=== PATIENT | male | born 1940 | race Caucasian/White ===

== ENCOUNTER 2018-08-24 16:22 | Outpatient (REF) | payer MEDICARE, SELFPAY ==
[2018-08-24 19:20] LABS: HCT 39.7 % (40.0-50.0); HGB 13.6 g/dL (13.5-17.5); Mean Corp. HGB Concentration 34.3 g/dL (32.0-36.0); Mean Corpuscular Hemoglobin 31.2 pg (27.0-33.0); Mean Corpuscular Volume 91.1 fL (80-95); Mean Platelet Volume 11.2 fL (8.0-11.0); Platelet Count 215 x1000/uL (130-400); RBC 4.36 m/cumm (4.50-6.00); RBC Distribution Width 12.4 % (11.8-14.1)
[2018-08-24 19:48] LABS: ALT 33 U/L (12-78); AST 28 U/L (15-37); Albumin 3.7 g/dL (3.4-5.0); Alkaline Phosphatase 50 U/L (46-116); Anion Gap 8.6 mmol/L (3-11); BUN 26 mg/dL (7-18); Bilirubin, Total 0.4 mg/dL (0.2-1.0); CO2 28.4 mmol/L (21.0-32.0); CREATININE 0.88 mg/dL (0.70-1.30); Calcium 9.2 mg/dL (8.5-10.1); Chloride 102 mmol/L (98-107); Glucose 92 mg/dL (70-100); Potassium 4.1 mmol/L (3.5-5.1); Sodium 139 mmol/L (136-145); Total Protein 7.6 g/dL (6.4-8.2)
[2018-08-26 09:39] LABS: PSA, Screening 2.4 ng/ml (0-6.5)
== END 2018-08-24 16:42 ==
LOC: NCHCN 16:22
PROVIDERS: PCP Internal Medicine; Visit Provider Physician Assistant Medical
DX: D64.9 Anemia, unspecified (principal); Z12.5 Encounter for screening for malignant neoplasm of prostate; R97.20 Elevated prostate specific antigen [PSA]
CPT/HCPCS: 80053; 84153; 85027

== ENCOUNTER 2018-12-14 09:12 | Outpatient (REF) | payer MEDICARE, SELFPAY ==
[2018-12-14 19:35] LABS: Uric Acid 4.5 mg/dL (3.5-7.2)
== END 2018-12-14 09:32 ==
LOC: NCHCN 09:12
PROVIDERS: PCP Internal Medicine; Visit Provider Nurse Practitioner Family
DX: L08.9 Local infection of the skin and subcutaneous tissue, unspecified (principal)
CPT/HCPCS: 84550

== ENCOUNTER 2019-12-31 19:19 | Outpatient (REF) | payer MEDICARE, SELFPAY ==
[2019-12-31 20:10] LABS: Abs Immature Grans 0.01 k/cumm (0.0-0.09); Absolute Basophil Count 0.01 k/cumm (0.0-0.2); Absolute Eosinophil Count 0.01 k/cumm (0.0-0.7); Absolute Lymphocyte Count 0.83 k/cumm (1.2-3.4); Absolute Monocyte Count 0.61 k/cumm (0.11-0.7); Absolute Neutrophil Count 2.27 k/cumm (1.2-6.7); Basophils % 0.3; Eosinophils % 0.3; HCT 36.8 % (40.0-50.0); HGB 12.2 g/dL (13.5-17.5); Immature Grans % 0.3 %; Lymphocytes % 22.2; Mean Corp. HGB Concentration 33.2 g/dL (32.0-36.0); Mean Corpuscular Hemoglobin 30.4 pg (27.0-33.0); Mean Corpuscular Volume 91.8 fL (80-95); Mean Platelet Volume 10.4 fL (8.0-11.0); Monocytes % 16.3; Neutrophils % 60.6; Platelet Count 263 x1000/uL (130-400); RBC 4.01 m/cumm (4.50-6.00); RBC Distribution Width 12.1 % (11.8-14.1); White Blood Cell Count 3.74 k/cumm (4.4-10.8)
[2019-12-31 20:40] LABS: ALT 250 U/L (16-63); AST 160 U/L (15-37); Albumin 3.1 g/dL (3.4-5.0); Alkaline Phosphatase 109 U/L (46-116); BUN 21 mg/dL (7-18); CREATININE 1.09 mg/dL (0.70-1.30); Calcium 8.8 mg/dL (8.5-10.1); Chloride 100 mmol/L (98-107); Glucose 95 mg/dL (74-106); LDL CHOLESTEROL 80 mg/dL (<100); Sodium 136 mmol/L (136-145); TSH (W/Ref FT4) 1.28 uIU/mL (0.36-3.74); Total Protein 7.1 g/dL (6.4-8.2)
[2019-12-31 21:02] LABS: Bilirubin, Total 0.3 mg/dL (0.2-1.0)
[2020-01-03 09:45] LABS: PSA, Screening 5.1 ng/mL (0.0-6.5)
== END 2019-12-31 19:39 ==
LOC: NCHCN 19:19
PROVIDERS: PCP Internal Medicine; Visit Provider Physician Assistant
DX: R47.02 Dysphasia (principal); E78.5 Hyperlipidemia, unspecified; I20.9 Angina pectoris, unspecified; R97.20 Elevated prostate specific antigen [PSA]
CPT/HCPCS: 80053; 83721; 84153; 84443; 85025

== ENCOUNTER 2020-01-06 00:38 | Outpatient (CLI) | payer MEDICARE, SELFPAY ==
[2020-01-06] MEDS: Barium Sulfate 60% W/V 355 ML BTL PO (09:36)
[2020-01-06] MEDS: Simethicone/Sod Bicarb/Cit Ac, 4 gram PACKET 1 PACKET PO (09:36)
--- NOTE | 2020-01-06 09:37 | DI.RAD_ITS ---
EXAM: RF BARIUM SWALLOW CLINICAL HISTORY: DYSPHAGIA, R13.10 TECHNIQUE: 2D and realtime digital imaging was performed. CONTRAST MATERIAL: Oral barium contrast was administered. COMPARISON: No exams were available for comparison FINDINGS: CHEST X-RAY: The heart and pulmonary vasculature are within normal limits. The lungs are clear. No pl eural effusion or pneumothorax is present. The bones are within normal limits fo the patient's age. ESOPHAGRAM: The esophagus is patent with no evidence for erosions, fold thickening, strictures, or ma sses. With regards to the motility, there is a normal primary stripping wave. Tertiary contractions w ere noted. There is a moderate size hiatal hernia. No gastroesophageal reflux was identified during the examination. There was penetration without indira aspiration during the examination. IMPRESSION: Small hiatal hernia without gastroesophageal reflux.
== END 2020-01-06 00:58 ==
PROVIDERS: PCP Internal Medicine; Visit Provider Physician Assistant
DX: R13.10 Dysphagia, unspecified (principal); K44.9 Diaphragmatic hernia without obstruction or gangrene
CPT/HCPCS: 74221; J3490

== ENCOUNTER 2020-01-07 21:30 | Outpatient (REF) | payer MEDICARE, SELFPAY ==
[2020-01-07 18:50] LABS: Bilirubin Negative (Negative); Blood Negative (Negative); Clarity Clear (Clear); Glucose Negative (Negative); Ketones Negative (Negative); Leukocyte Esterase Trace (Negative); Nitrite Negative (Negative); Specific Gravity 1.025 (1.005-1.025); Urobilinogen 0.2 EU/dL (Up TO 0.2); pH 5.5 (5-8)
[2020-01-07 19:01] LABS: Bacteria Rare HPF (Negative); Epithelial Cells Few HPF (Negative); RBC 0-2 HPF (0-2)
[2020-01-07 19:02] LABS: Casts Negative LPF (Negative); Crystals Negative HPF (Negative); Mucus Negative (Negative)
[2020-01-07 19:03] LABS: C & S Indicated? No
[2020-01-07 19:19] LABS: Iron 30 ug/dL (65-175); Total Iron Binding Capacity 232 ug/dL (250-450); Transferrin Sat 13 % (20-55)
[2020-01-07 19:47] LABS: Ferritin 416 ng/mL (26-388)
[2020-01-10 09:53] LABS: HBs Antibody, Quant <3.1 mIU/mL (See Note); Hepatitis B Surface Ab Negative (See Note)
[2020-01-10 10:03] LABS: Hepatitis B Surface Ag Negative (Negative)
[2020-01-10 10:40] LABS: Hepatitis C Ab w Rflx HCV PCR Negative (Negative)
[2020-01-10 11:06] LABS: Hep A Total Ab w Rflx IgM Negative (Negative)
== END 2020-01-07 21:50 ==
LOC: NCHCN 21:30
PROVIDERS: PCP Internal Medicine; Visit Provider Physician Assistant
DX: R74.8 Abnormal levels of other serum enzymes (principal)
CPT/HCPCS: 86706; 86709; 86803; 87340; 81003; 81015; 82728; 83540; 83550

== ENCOUNTER 2020-01-21 03:16 | Outpatient (CLI) | payer MEDICARE, SELFPAY ==
[2020-01-21] MEDS: Omnipaque 350 MG/ML 50 ML BTL IJ (08:12)
--- NOTE | 2020-01-21 09:35 | DI.CT_ITS ---
EXAM: CT ABDOMEN PELVIS W CLINICAL HISTORY: ELEVATED LIVER ENZYMES,ANEMIA,HEMATURIA,PROSTATE NODULE,ELEVATED PSA TECHNIQUE: COMPARISON: No exams were available for comparison FINDINGS: CT examination of the abdomen and pelvis was performed bolus infusion of 100 cc of Omnipaque 350. Im ages obtained through the lung bases are unremarkable. Note is made of coronary artery calcification s. The liver and spleen appear normal except for mild hepatic steatosis. Gallbladder and bile ducts are CT normal. Pancreas appears normal. The adrenals are unremarkable in appearance bilaterally. Ther e is no evidence of a renal mass, hydronephrosis, or nephrolithiasis. Abdominal aorta is of normal diameter and major visceral branches appear intact. Tiny fat containing bilateral inguinal hernias are noted. No significant abdominal or pelvic adenopathy seen. The prostate is enlarged. There is masslike protuberances into the base of the urinary bladder which may represent lobulated enlarged prostate, bladder mass not excluded. Moderate bladder wall thicken ing is noted consistent with chronic bladder outlet obstruction. Appendix is not specifically visualized but there is no evidence of appendicitis or diverticulitis. There is no evidence of bowel obstruction. IMPRESSION: Prostatic enlargement, question bladder floor mass versus protruding prostatic tissue. Presumed community health advisor nalini bladder outlet obstruction with mild urinary bladder wall thickening. No abnormality of the upper urinary tracts.
[2020-01-21] MEDS: Omnipaque 350 MG/ML 100 ML BTL IJ (09:44)
== END 2020-01-21 03:36 ==
PROVIDERS: PCP Internal Medicine; Visit Provider Physician Assistant
DX: N40.0 Benign prostatic hyperplasia without lower urinary tract symptoms (principal); R97.20 Elevated prostate specific antigen [PSA]; R94.5 Abnormal results of liver function studies
CPT/HCPCS: 74177; J3490; Q9967

== ENCOUNTER 2020-02-16 08:17 | Outpatient (REF) | payer MEDICARE, SELFPAY ==
[2020-02-17 02:21] LABS: ALT 30 U/L (16-63); AST 26 U/L (15-37); Albumin 3.4 g/dL (3.4-5.0); Alkaline Phosphatase 47 U/L (46-116); Bilirubin, Direct 0.07 mg/dL (0.00-0.20); Bilirubin, Total 0.4 mg/dL (0.2-1.0); Total Protein 7.1 g/dL (6.4-8.2)
== END 2020-02-16 08:37 ==
LOC: NCHCN 08:17
PROVIDERS: PCP Internal Medicine; Visit Provider Physician Assistant
DX: R74.8 Abnormal levels of other serum enzymes (principal)
CPT/HCPCS: 80076

== ENCOUNTER 2020-12-27 11:24 | Outpatient (REF) | payer MEDICARE, SELFPAY ==
[2020-12-27 19:46] LABS: Abs Immature Grans 0.01 10^3/uL (0.0-0.06); Absolute Basophil Count 0.04 10^3/uL (0.0-0.2); Absolute Eosinophil Count 0.24 10^3/uL (0.0-0.7); Absolute Lymphocyte Count 1.44 10^3/uL (1.2-3.4); Absolute Monocyte Count 0.63 10^3/uL (0.1-0.8); Absolute Neutrophil Count 3.15 10^3/uL (1.2-6.7); Basophils % 0.7; Eosinophils % 4.4; HGB 13.8 g/dL (13.5-17.5); Immature Grans % 0.2; Lymphocytes % 26.1; MCH 30.7 pg (27.0-33.0); MCHC 33.7 % (32.0-36.0); MCV 91.3 fL (80-95); MPV 10.7 fL (8.0-11.0); Monocytes % 11.4; Neutrophils % 57.2; Nucleated RBC 0 %; Platelet Count 212 10^3/uL (130-400); RBC 4.49 10^6/uL (4.36-5.78); RDW 11.7 % (11.8-14.1); RDW-SD 39.5 fL; WBC 5.51 10^3/uL (4.4-10.8)
[2020-12-27 20:09] LABS: ALT 33 U/L (16-63); AST 28 U/L (15-37); Albumin 3.6 g/dL (3.4-5.0); Alkaline Phosphatase 45 U/L (46-116); Anion Gap 8.8 mmol/L (3-11); BUN 24 mg/dL (7-18); Bilirubin, Total 0.6 mg/dL (0.2-1.0); CO2 26.2 mmol/L (21.0-32.0); CREATININE 0.9 mg/dL (0.70-1.30); Chloride 106 mmol/L (98-107); Glucose 106 mg/dL (74-106); Potassium 4.1 mmol/L (3.5-5.1); Sodium 141 mmol/L (136-145); Total Protein 7.4 g/dL (6.4-8.2)
[2020-12-27 20:57] LABS: Calculated LDL 124 mg/dL (<100); Cholesterol 198 mg/dL (<200); HDL Cholesterol 47 mg/dL (40-60); Triglyceride 135 mg/dL (<150)
== END 2020-12-27 11:25 | disposition home or self-care (01) ==
LOC: NCHCN 11:24
PROVIDERS: PCP Internal Medicine; Visit Provider Physician Assistant
DX: E78.5 Hyperlipidemia, unspecified (principal); I20.8 Other forms of angina pectoris; D64.9 Anemia, unspecified
CPT/HCPCS: 80053; 80061; 85025

== ENCOUNTER 2021-10-24 18:08 | Outpatient (REF) | payer MEDICARE, SELFPAY ==
[2021-10-24 20:51] LABS: HCT 38.9 % (40.0-50.0); HGB 12.6 g/dL (13.5-17.5); MCH 29.2 pg (27.0-33.0); MCHC 32.4 % (32.0-36.0); MCV 90 fL (80-95); MPV 10.5 fL (8.0-11.0); Platelet Count 344 10^3/uL (130-400); RBC 4.32 10^6/uL (4.36-5.78); RDW 12.7 % (11.8-14.1); RDW-SD 41.9 fL; WBC 9.79 10^3/uL (4.4-10.8)
[2021-10-24 20:52] LABS: ESR 63 mm/hr (0-20)
[2021-10-25 18:00] LABS: CRP, High Sensitivity 13.83 mg/L (See Note)
[2021-10-25 18:46] LABS: PSA, Diagnostic 2.2 ng/mL (<=6.5)
== END 2021-10-24 18:09 | disposition home or self-care (01) ==
LOC: NCHCN 18:08
PROVIDERS: PCP Internal Medicine; Visit Provider Physician Assistant
DX: D64.9 Anemia, unspecified (principal); R97.20 Elevated prostate specific antigen [PSA]
CPT/HCPCS: 85027; 85652; 86141; 84153

== ENCOUNTER 2022-01-10 13:04 | Outpatient (REF) | payer MEDICARE, SELFPAY ==
[2022-01-10 18:52] LABS: ESR 65 mm/hr (0-20); HCT 38.4 % (40.0-50.0); HGB 12.9 g/dL (13.5-17.5); MCH 29.8 pg (27.0-33.0); MCHC 33.6 % (32.0-36.0); MCV 89 fL (80-95); MPV 10.7 fL (8.0-11.0); Platelet Count 275 10^3/uL (130-400); RBC 4.33 10^6/uL (4.36-5.78); RDW 12.7 % (11.8-14.1); RDW-SD 41.6 fL; WBC 9.02 10^3/uL (4.4-10.8)
[2022-01-10 19:00] LABS: ALT 26 U/L (16-63); AST 23 U/L (15-37); Albumin 3.3 g/dL (3.4-5.0); Alkaline Phosphatase 54 U/L (46-116); BUN 28 mg/dL (7-18); Bilirubin, Total 0.5 mg/dL (0.2-1.0); C-Reactive Protein 1.67 mg/dL (0.0-0.3); CREATININE 0.9 mg/dL (0.70-1.30); Calcium 8.9 mg/dL (8.5-10.1); Chloride 103 mmol/L (98-107); Glucose 96 mg/dL (74-106); Sodium 137 mmol/L (136-145); Total Protein 7.2 g/dL (6.4-8.2)
== END 2022-01-10 13:05 | disposition home or self-care (01) ==
LOC: NCHCN 13:04
PROVIDERS: PCP Internal Medicine; Visit Provider Physician Assistant
DX: R70.0 Elevated erythrocyte sedimentation rate (principal); R79.82 Elevated C-reactive protein (CRP); M79.604 Pain in right leg; M79.605 Pain in left leg; M79.621 Pain in right upper arm; H53.8 Other visual disturbances; M25.50 Pain in unspecified joint
CPT/HCPCS: 80053; 85027; 85652; 86140

== ENCOUNTER 2022-01-25 10:15 | Outpatient (REF) | payer MEDICARE, SELFPAY ==
[2022-01-25 19:24] LABS: ESR 27 mm/hr (0-20)
[2022-01-25 19:32] LABS: C-Reactive Protein < 0.05 mg/dL (0.0-0.3)
== END 2022-01-25 10:16 | disposition home or self-care (01) ==
LOC: NCHCN 10:15
PROVIDERS: PCP Internal Medicine; Visit Provider Nurse Practitioner Family
DX: M35.3 Polymyalgia rheumatica (principal)
CPT/HCPCS: 85652; 86140

== ENCOUNTER 2023-01-30 19:12 | Outpatient (REF) | payer MEDICARE, SELFPAY ==
[2023-01-30 19:33] LABS: HCT 38.6 % (40.0-50.0); HGB 13.2 g/dL (13.5-17.5); MCH 30.6 pg (27.0-33.0); MCHC 34.2 % (32.0-36.0); MCV 90 fL (80-95); MPV 10.7 fL (8.0-11.0); Platelet Count 252 10^3/uL (130-400); RBC 4.31 10^6/uL (4.36-5.78); WBC 7.18 10^3/uL (4.4-10.8)
[2023-01-30 19:58] LABS: ALT 27 U/L (16-63); AST 29 U/L (15-37); Albumin 3.6 g/dL (3.4-5.0); Alkaline Phosphatase 57 U/L (46-116); Anion Gap 8.6 mmol/L (3-11); BUN 27 mg/dL (7-18); Bilirubin, Total 0.4 mg/dL (0.2-1.0); CO2 27.4 mmol/L (21.0-32.0); CREATININE 0.9 mg/dL (0.70-1.30); Calcium 9.4 mg/dL (8.5-10.1); Chloride 106 mmol/L (98-107); Estimated GFR 86.34 (mL/min/1.73m2); Glucose 104 mg/dL (74-106); Potassium 4.2 mmol/L (3.5-5.1); Sodium 142 mmol/L (136-145); Total Protein 7.7 g/dL (6.4-8.2)
[2023-01-31 19:15] LABS: PSA, Screening 1.7 ng/mL (<=6.5)
== END 2023-01-30 19:13 | disposition home or self-care (01) ==
LOC: NCHCN 19:12
PROVIDERS: PCP Internal Medicine; Visit Provider Physician Assistant
DX: E78.5 Hyperlipidemia, unspecified (principal); R97.20 Elevated prostate specific antigen [PSA]; Z12.5 Encounter for screening for malignant neoplasm of prostate; D64.9 Anemia, unspecified
CPT/HCPCS: 80053; 84153; 85027

== ENCOUNTER 2024-02-10 17:08 | Outpatient (REF) | payer OTHER, SELFPAY ==
[2024-02-10 18:53] LABS: Abs Immature Grans 0.01 10^3/uL (0.0-0.06); Absolute Basophil Count 0.04 10^3/uL (0.0-0.2); Absolute Eosinophil Count 0.23 10^3/uL (0.0-0.7); Absolute Lymphocyte Count 1.41 10^3/uL (1.2-3.4); Absolute Monocyte Count 0.63 10^3/uL (0.1-0.8); Absolute Neutrophil Count 3.57 10^3/uL (1.2-6.7); Basophils % 0.7 %; Eosinophils % 3.9 %; HCT 40.7 % (40.0-50.0); HGB 13.7 g/dL (13.5-17.5); Immature Grans % 0.2 %; Lymphocytes % 23.9 %; MCH 30.9 pg (27.0-33.0); MCHC 33.7 % (32.0-36.0); MCV 92 fL (80-95); MPV 10.8 fL (8.0-11.0); Monocytes % 10.7 %; Neutrophils % 60.6 %; Platelet Count 229 10^3/uL (130-400); RBC 4.44 10^6/uL (4.36-5.78); RDW 12.1 % (11.8-14.1); WBC 5.89 10^3/uL (4.4-10.8)
[2024-02-10 19:17] LABS: ALT 36 U/L (16-63); AST 36 U/L (15-37); Albumin 3.7 g/dL (3.4-5.0); Alkaline Phosphatase 58 U/L (46-116); Anion Gap 9.3 mmol/L (3-11); BUN 25 mg/dL (7-18); Bilirubin, Total 0.57 mg/dL (0.2-1.0); CO2 26.7 mmol/L (21.0-32.0); Calcium 9.3 mg/dL (8.5-10.1); Chloride 103 mmol/L (98-107); Estimated GFR 75.61 (mL/min/1.73m2); Glucose 101 mg/dL (74-106); Potassium 4.3 mmol/L (3.5-5.1); Sodium 139 mmol/L (136-145)
[2024-02-12 15:49] LABS: PSA, Screening 1.8 ng/mL (<=6.5)
== END 2024-02-10 17:09 | disposition home or self-care (01) ==
LOC: NCHCN 17:08
PROVIDERS: PCP Internal Medicine; Visit Provider Physician Assistant
DX: I20.9 Angina pectoris, unspecified (principal); N40.0 Benign prostatic hyperplasia without lower urinary tract symptoms; Z12.5 Encounter for screening for malignant neoplasm of prostate
CPT/HCPCS: 80053; 84153; 85025

== ENCOUNTER 2025-02-23 16:01 | Outpatient (REF) | payer MEDICARE, SELFPAY ==
[2025-02-23 20:27] LABS: Abs Immature Grans 0.01 10^3/uL (0.0-0.06); HCT 39.6 % (40.0-50.0); HGB 13.3 g/dL (13.5-17.5); Immature Grans % 0.1 %; MCH 30.2 pg (27.0-33.0); MCHC 33.6 % (32.0-36.0); MCV 90 fL (80-95); MPV 10.8 fL (8.0-11.0); Platelet Count 218 10^3/uL (130-400); RBC 4.40 10^6/uL (4.36-5.78); RDW 11.9 % (11.8-14.1); RDW-SD 39.3 fL; WBC 6.82 10^3/uL (4.4-10.8)
[2025-02-23 20:42] LABS: ALT 30 U/L (16-63); AST 34 U/L (15-37); Albumin 3.7 g/dL (3.4-5.0); Alkaline Phosphatase 51 U/L (46-116); Anion Gap 6.8 mmol/L (3-11); BUN 27 mg/dL (7-18); Bilirubin, Total 0.5 mg/dL (0.2-1.0); CO2 28.2 mmol/L (21.0-32.0); Calcium 9.8 mg/dL (8.5-10.1); Chloride 104 mmol/L (98-107); Estimated GFR 85.27 (mL/min/1.73m2); Glucose 109 mg/dL (74-106); Potassium 4.3 mmol/L (3.5-5.1); Sodium 139 mmol/L (136-145); Total Protein 8.1 g/dL (6.4-8.2)
== END 2025-02-23 16:02 | disposition home or self-care (01) ==
LOC: NCHCN 16:01
PROVIDERS: PCP Internal Medicine; Visit Provider Physician Assistant
DX: E78.5 Hyperlipidemia, unspecified (principal); I20.9 Angina pectoris, unspecified
CPT/HCPCS: 80053; 85025